=== PATIENT | male | born 1960 | race Caucasian/White ===

== ENCOUNTER 2019-02-20 17:04 | Inpatient (IN) ==
[2019-02-20] MEDS ORDERED: PROMETHAZINE HCL 12.5 MG in SODIUM CHLORIDE 0.9% 50 ML IV STA (18:01)
[2019-02-20] MEDS ORDERED: DiphenhydrAMINE HCL 50 MG/ML VIAL IV STA (18:01)
[2019-02-20] MEDS ORDERED: SODIUM CHLORIDE 0.9% 1000ML 1,000 ML IV ONE (18:04)
[2019-02-20] MEDS ORDERED: FAMOTIDINE 20MG/5ML IV PUSH IV STA (18:08)
[2019-02-20] MEDS ORDERED: PROMETHAZINE 12.5 MG/50.5 ML NSS IV ONE (18:12)
[2019-02-20 18:20] LABS: Hematocrit (blood only) 40.7 % (42-52); Immature Granulocytes # (auto) 0.04 K/uL (0.00-0.02); Immature Granulocytes % (auto) 0.2 %; Lymphocytes # (auto) 0.84 K/uL (1.2-3.4); Lymphocytes % (auto) 5.1 %; Mean Corpuscular Hgb Conc 36.9 g/dL (32-36); Mean Corpuscular Volume 81.6 fL (80-100); Mean Platelet Volume 10.2 fL (7.4-10.4); Monocytes # (auto) 0.89 K/uL (0.11-0.59); Monocytes % (auto) 5.4 %; Neutrophils # (auto) 14.72 K/uL (1.4-6.5); Neutrophils % (auto) 89.3 %; Platelet Count 197 K/uL (130-400); RDW Coefficient of Variation 12.9 % (11.5-14.5); RDW Standard Deviation 38.7 fL (36.4-46.3); Red Blood Count 4.99 M/uL (4.7-6.1); White Blood Count 16.49 K/uL (4.8-10.8)
--- NOTE | 2019-02-20 18:26 | XRay Report ---
XR chest 1V portable CLINICAL HISTORY: Epigastric pain. COMPARISON STUDY: Chest radiograph February 24, 2013. FINDINGS: Cardiomegaly is noted. There is mild left basilar opacity. Right lung is clear. No evidence for pulmonary edema. No pneumothorax is noted. There is slight blunting of the left costophrenic ang le. IMPRESSION: 1. Left basilar opacity which favors atelectasis. 2. Cardiomegaly without evidence for pulmonary edema. Electronically signed by: Sebastián Valencia M.D. 02/20/2019 6:24 PM
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
[2019-02-20 18:39] LABS: BUN Creatinine Ratio 17.1 (10-20); Blood Urea Nitrogen 14 mg/dl (7-18); Calcium 8.7 mg/dl (8.5-10.1); Carbon Dioxide 26 mmol/L (21-32); Chloride 93 mmol/L (98-107); Creatinine Clr Calc Pharmacy 124.4 ml/min; Est GFR (African American) 114.3; Est GFR (Non-African American) 98.7; Glucose 148 mg/dl (70-99); Magnesium 2.1 mg/dl (1.8-2.4); Potassium 3.7 mmol/L (3.5-5.1); Sodium 128 mmol/L (136-145)
[2019-02-20 19:01] LABS: Alanine Aminotransferase 28 U/L (12-78); Albumin Globulin Ratio 1.1 (0.9-2); Alkaline Phosphatase 70 U/L (45-117); Aspartate Aminotransferase 28 U/L (15-37); Bilirubin,Total 3.5 mg/dl (0.2-1); Globulin 3.8 gm/dl (2.5-4.0); Total Protein 7.8 gm/dl (6.4-8.2); Troponin I < 0.015 ng/ml (0-0.045)
[2019-02-20] MEDS ORDERED: IOVERSOL 100ml IV PRN (19:17)
--- NOTE | 2019-02-20 19:37 | CT Scan Report ---
CT OF THE ABDOMEN AND PELVIS WITH CONTRAST CLINICAL HISTORY: Epigastric pain. COMPARISON STUDY: None. TECHNIQUE: Following IV administration of 92 mL of Optiray-320, axial images of the abdomen and pelvi s were obtained from the lung bases to the proximal femurs. Images were reviewed in the axial, sagitt al, and coronal planes. IV contrast was administered without complication. Automated exposure contro l was utilized for the study. A dose lowering technique was utilized adhering to the principles of A CL. CT DOSE: 1411.93 mGy.cm FINDINGS: Bibasilar opacities favor atelectasis. No pneumatosis, free air or portal venous gas is pre sent. The liver, spleen, adrenal glands and pancreas are unremarkable. There is no biliary or pancrea tic ductal dilatation. A 5 mm calculus within the lower pole the left kidney is noted. There is a pun ctate right renal calculi. There are no ureteral calculi. There is no hydronephrosis. There is mild s ymmetric bilateral perinephric infiltration. There is no evidence for a bowel obstruction. The append ix is normal. Exam is mildly compromised by motion artifact. There are no suspicious osseous lesions. Caliber and wall thickness of small and large bowel are normal. IMPRESSION: 1. Bilateral nephrolithiasis. No ureteral calculi. Symmetric bilateral perinephric infiltration, a no nspecific finding. Differential considerations include an infectious process or recently passed calcu yamel. Findings could be correlated with urinalysis. 2. No bowel obstruction. Normal appendix. 3. Bibasilar opacities within the lungs suggestive of atelectasis. Electronically signed by: Sebastián Valencia M.D. 02/20/2019 7:36 PM
[2019-02-20] MEDS ORDERED: HydrALAZINE HCL 20 MG/ML VIAL IV STA (19:49)
[2019-02-20 20:07] LABS: Appearance Urine Clear (Clear); Bilirubin Urine Negative (Negative); Blood Urine Negative (Negative); Color Urine Yellow; Glucose Urine UA Negative (Negative); Ketones Urine Negative (Negative); Leukocyte Esterase Urine Negative (Negative); Nitrite Urine Negative (Negative); Protein Urine Negative (Negative); Specific Gravity Urine 1.008 (1.000-1.030); Urobilinogen Urine Negative (Negative); pH Urine 6.5 (4.5-7.5)
--- NOTE | 2019-02-20 20:54 | History & Physical Report ---
Date of Service February 20, 2019 Assessment & Plan (1) Hyponatremia: Secondary to vomiting and decreased intake. Place on NSS plus KCl 20 mEq 100 mils per hour. Repeat laboratories in a.m. Present on Admission?: Yes (2) Hypertension: For overnight, use Lopressor 5 mg IV every 4 hours as needed. May resume lisinopril/HCTZ in a.m. Present on Admission?: Yes (3) Hiccups: Place on Thorazine 25 mg p.o. every 6 hours as needed Present on Admission?: Yes (4) Vomiting: CT abdomen and pelvis negative for issues such as ileus or enteritis or obstruction. Likely secondary to adverse drug reaction with taking Toradol and Percocet on empty stomach post surgery. Zofran 4 mg IV every 6 hours as needed. Compazine 10 mg IV every 6 hours as needed. Famotidine 20 mg IV every 12 hours. Present on Admission?: Yes (5) Adverse drug reaction: As above, likely irritation with Toradol and Percocet taken postoperatively on empty stomach, led to abdominal pain with nausea vomiting. Do not think this is an adverse effect of the drug itself, but how it was taken Present on Admission?: Yes (6) Adhesive capsulitis of left shoulder: Reports doing well post surgery. Nerve block is still in effect. Present on Admission?: Yes History of Present Illness Chief Complaint: The patient presents to the emergency department with intractable nausea and vomiting, and has had persistent hiccups over the past 24 hours Primary Care Provider: KAREN Hatfield The patient is a 58-year-old male who underwent orthopedic surgery yesterday for adhesive capsulitis. He went home afterwards, and reports he was doing okay until he took the oral Toradol and Percocet pills that have been prescribed for pain and inflammation to use post surgery. Shortly after taking the Toradol and Percocet, he developed nausea, vomiting and epigastric distress, that has persisted since that time. He reports no previous issues with anesthesia in the distant past, and has not had issues with taking anti-inflammatories or pain meds in the past. He also did develop pickups shortly after the procedure, and have persisted since that time. Allergies Allergy/AdvReac Type Severity Reaction Status Date / Time clindamycin Allergy Mild DIZZY Verified 02/19/19 09:26 Penicillins Allergy Unknown . Verified 02/19/19 09:26 amlodipine Allergy Verified 02/19/19 09:26 amoxicillin [From Augmentin] Allergy Verified 02/19/19 09:26 clavulanic acid Allergy Verified 02/19/19 09:26 [From Augmentin] Home Medications Home Medications Medication Instructions Recorded Confirmed Type ascorbic acid (vitamin C) 1,000 mg 1 gm PO DAILY #30 tab 12/29/18 02/20/19 Rx tablet beta carotene 15 mg tablet 15 mg PO DAILY tab 12/29/18 02/20/19 History cholecalciferol (vitamin D3) 2,000 2,000 units PO DAILY #30 cap 12/29/18 02/20/19 Rx unit capsule multivitamin tablet 1 tab PO DAILY #30 tab 12/29/18 02/20/19 Rx omega-3 fatty acids 500 mg capsule 500 mg PO DAILY #30 cap 12/29/18 02/20/19 Rx vitamin B complex tablet 1 tab PO DAILY #30 tab 12/29/18 02/20/19 Rx CLA 1,000 mg PO DAILY 02/11/19 02/20/19 History ferrous sulfate [iron] 325 mg PO DAILY 02/11/19 02/20/19 History oxycodone-acetaminophen [Percocet] 1 tab PO Q6H PRN #30 tab 02/19/19 02/20/19 Rx Bpc 157 Amino Acids 1 dose INJ UD 02/20/19 02/20/19 History Lecithin E 3 tabs PO DAILY 02/20/19 02/20/19 History ketorolac 10 mg PO Q8H PRN 02/20/19 02/20/19 History lisinopril-hydrochlorothiazide 0.5 tab PO MOWEFR 02/20/19 02/20/19 History loratadine [Claritin] 10 mg PO DAILY PRN 02/20/19 02/20/19 History turmeric 0 mg PO DAILY 02/20/19 02/20/19 History Past Med/Surg History Medical History Fracture of left carpal bone Depression with anxiety (Chronic) Lower back pain (Chronic) Obstructive sleep apnea (Chronic) resolved w/ wt loss Hypertension (Chronic) Type 2 diabetes mellitus (Chronic) diet controlled (reports resolved since wt loss) Ventral hernia (Chronic) Gilbert syndrome Herniated cervical disc Surgical History History of colonoscopy w/ polypectomy History of esophagogastroduodenoscopy (EGD) Status post trigger finger release Family History Father H/O aortic valve replacement @ age 85 Hypertension Social History Preferred Language: Portuguese Communication Ability: Effective Visual Impairment: No Limitations Hearing Ability: Normal Aircraft Time Clerk Required: No Beliefs That Will Affect Care: None marital status: Single Current Living Situation: Parent Current Living Situation Comment: parents live with him current occupational status: employed current occupation: self-employed musician Feels Safe at Home: Yes Safety Concerns: Feels Safe At This Time Smoking Status: Never smoker Hx Alcohol Use: Yes Alcohol type: beer Alcohol Intake Frequency: Holidays/Special Occasions Hx Substance Use: No Dental Care, Regularly: Yes Physical Activity Frequency: 3-4 Times per Week Review of Systems Review of Systems: The patient denies chest pain, palpitations, shortness of breath, dyspnea on exertion, cough, lower extremity swelling, sore throat, fevers, chills, sweats, diarrhea , constipation, blood in urine or stool, dysuria, urinary frequency or urgency, lightheadedness, dizziness, headache, memory loss, loss of consciousness, rash, abnormal bruising or bleeding, imbalance, focal or generalized weakness, numbness or tingling in arms or legs, generalized arthralgias or myalgias, back or neck pain, or night sweats. The review of systems is otherwise negative other than for that already noted above, and at least 10 systems have been reviewed. Physical Exam Physical Exam: The patient is awake, alert and oriented 3, well developed and well nourished, normocephalic and atraumatic, lying in bed and in no acute distress. HEENT--PERRL, EOMI, mucous membranes and oropharynx dry. Neck--supple. No JVD. No bruits. Thyroid normal, trachea midline, no adenopathy. Heart--normal S1 and S2. No murmurs, rubs or gallops. Lungs--clear bilaterally, no respiratory distress, no accessory muscle use. Abdomen--normal bowel sounds and soft. Nontender. Nondistended, no hernias or masses, no organomegaly. Extremities--no cyanosis or clubbing. No edema. There are good distal pulses b/l. Dermatologic--normal skin turgor, normal color, no abnormal lymph nodes, no rash. Neurologic--cranial nerves II through XII grossly intact. Rheumatologic--limited exam due to left arm shoulder in a sling Psychiatric--normal affect. Results & Data Vital Signs (Past 12 Hours) Vital Signs Temp Pulse Resp BP Pulse Ox 02/20/19 17:34 99.0 F 82 19 213/100 H 96 Laboratory Results Laboratory Results WBC 16.49 K/uL (4.8-10.8) H 02/20/19 17:57 RBC 4.99 M/uL (4.7-6.1) 02/20/19 17:57 Hgb 15.0 g/dL (14.0-18.0) 02/20/19 17:57 Hct 40.7 % (42-52) L 02/20/19 17:57 MCV 81.6 fL (80-100) 02/20/19 17:57 MCH 30.1 pg (25-34) 02/20/19 17:57 MCHC 36.9 g/dL (32-36) H 02/20/19 17:57 RDW Std Deviation 38.7 fL (36.4-46.3) 02/20/19 17:57 RDW Coeff of Mark 12.9 % (11.5-14.5) 02/20/19 17:57 Plt Count 197 K/uL (130-400) 02/20/19 17:57 MPV 10.2 fL (7.4-10.4) 02/20/19 17:57 Immature Gran % (Auto) 0.2 % 02/20/19 17:57 Neut % (Auto) 89.3 % 02/20/19 17:57 Lymph % (Auto) 5.1 % 02/20/19 17:57 [place] % (Auto) 5.4 % 02/20/19 17:57 Eos % (Auto) 0.0 % 02/20/19 17:57 Baso % (Auto) 0.0 % 02/20/19 17:57 Immature Gran # (Auto) 0.04 K/uL (0.00-0.02) H 02/20/19 17:57 Neut # (Auto) 14.72 K/uL (1.4-6.5) H 02/20/19 17:57 Lymph # (Auto) 0.84 K/uL (1.2-3.4) L 02/20/19 17:57 [place] # (Auto) 0.89 K/uL (0.11-0.59) H 02/20/19 17:57 Eos # (Auto) 0.00 K/uL (0-0.5) 02/20/19 17:57 Baso # (Auto) 0.00 K/uL (0-0.2) 02/20/19 17:57 Sodium 128 mmol/L (136-145) L 02/20/19 17:57 Potassium 3.7 mmol/L (3.5-5.1) 02/20/19 17:57 Chloride 93 mmol/L (98-107) L 02/20/19 17:57 Carbon Dioxide 26 mmol/L (21-32) 02/20/19 17:57 Anion Gap 9.0 (3-11) 02/20/19 17:57 BUN 14 mg/dl (7-18) 02/20/19 17:57 Creatinine 0.81 mg/dl (0.6-1.4) 02/20/19 17:57 Est Cr Clr Drug Dosing 124.4 ml/min 02/20/19 17:57 Est GFR ( Amer) 114.3 02/20/19 17:57 Est GFR (Non-Af Amer) 98.7 02/20/19 17:57 BUN/Creatinine Ratio 17.1 (10-20) 02/20/19 17:57 Glucose 148 mg/dl (70-99) H 02/20/19 17:57 Calcium 8.7 mg/dl (8.5-10.1) 02/20/19 17:57 Magnesium 2.1 mg/dl (1.8-2.4) 02/20/19 17:57 Total Bilirubin 3.5 mg/dl (0.2-1) H 02/20/19 17:57 AST 28 U/L (15-37) 02/20/19 17:57 ALT 28 U/L (12-78) 02/20/19 17:57 Alkaline Phosphatase 70 U/L (45-117) 02/20/19 17:57 Troponin I < 0.015 ng/ml (0-0.045) 02/20/19 17:57 Total Protein 7.8 gm/dl (6.4-8.2) 02/20/19 17:57 Albumin 4.0 gm/dl (3.4-5.0) 02/20/19 17:57 Globulin 3.8 gm/dl (2.5-4.0) 02/20/19 17:57 Albumin/Globulin Ratio 1.1 (0.9-2) 02/20/19 17:57 Lipase 119 U/L (73-393) 02/20/19 17:57 Urine Color Yellow 02/20/19 19:20 Urine Appearance Clear (Clear) 02/20/19 19:20 Urine pH 6.5 (4.5-7.5) 02/20/19 19:20 Ur Specific [place] 1.008 (1.000-1.030) 02/20/19 19:20 Urine Protein Negative (Negative) 02/20/19 19:20 Urine Glucose (UA) Negative (Negative) 02/20/19 19:20 Urine Ketones Negative (Negative) 02/20/19 19:20 Urine Blood Negative (Negative) 02/20/19 19:20 Urine Nitrite Negative (Negative) 02/20/19 19:20 Urine Bilirubin Negative (Negative) 02/20/19 19:20 Urine Urobilinogen Negative (Negative) 02/20/19 19:20 Ur Leukocyte Esterase Negative (Negative) 02/20/19 19:20 Diagnostic Findings [place], [place] [phone] CT Scan Report Patient: CHANTEL HAYS WAdmit Date: 02/20/19 MR#: [id number]: [address] [facility] EXT Acct ID:[id number]: Date: [address] [place] [address] Zip: [place] [id number] Age: 58Location: ED Sex: M Room/Bed: Att Phy: Diagnosis: NAUSEA, VOMITING, HICCUPS, PAIN FROM THEM IN ABD Leeanne Phy: Alfa Garcia, JUDSONNPService Date: 02/20/19 Fam Phy: Rick Graff, DOInterpreting Phy: Sebatsián Valencia MD Admit Phy: Ordering Phy: Augustin Culver M.D. cc: ~ CT OF THE ABDOMEN AND PELVIS WITH CONTRAST CLINICAL HISTORY: Epigastric pain. COMPARISON STUDY: None. TECHNIQUE: Following IV administration of 92 mL of Optiray-320, axial images of the abdomen and pelvis were obtained from the lung bases to the proximal femurs. Images were reviewed in the axial, sagittal, and coronal planes. IV contrast was administered without complication. Automated exposure control was utilized for the study. A dose lowering technique was utilized adhering to the principles of ALARA. CT DOSE: 1411.93 mGy.cm FINDINGS: Bibasilar opacities favor atelectasis. No pneumatosis, free air or portal venous gas is present. The liver, spleen, adrenal glands and pancreas are unremarkable. There is no biliary or pancreatic ductal dilatation. A 5 mm calculus within the lower pole the left kidney is noted. There is a punctate right renal calculi. There are no ureteral calculi. There is no hydronephrosis. There is mild symmetric bilateral perinephric infiltration. There is no evidence for a bowel obstruction. The appendix is normal. Exam is mildly compromised by motion artifact. There are no suspicious osseous lesions. Caliber and wall thickness of small and large bowel are normal. IMPRESSION: 1. Bilateral nephrolithiasis. No ureteral calculi. Symmetric bilateral pe rinephric infiltration, a nonspecific finding. Differential considerations include an infectious process or recently passed calculus. Findings could be correlated with urinalysis. 2. No bowel obstruction. Normal appendix. 3. Bibasilar opacities within the lungs suggestive of atelectasis. Electronically signed by: Sebastián Valencia M.D. 02/20/2019 7:36 PM Dictated: 02/20/191926 Transcribed: 02/20/191926 [place], [place] [phone] XRay Report Patient: CHANTEL HAYS WAdmit Date: 02/20/19 MR#: [id number]: [address] [facility] EX[facility] Acct ID:[id number]: Date: [address] [place] [address] Zip: [place] [address] Age: 58Location: ED Sex: M Room/Bed: Att Phy: Diagnosis: NAUSEA, VOMITING, HICCUPS, PAIN FROM THEM IN ABD Leeanne Phy: Alfa Garcia, JUDSONNPService Date: 02/20/19 Fam Phy: Rick Graff, BRIANnterpreting Phy: Sebastián Valencia MD Admit Phy: Ordering Phy: Augustin Culver M.D. cc: ~ XR chest 1V portable CLINICAL HISTORY: Epigastric pain. COMPARISON STUDY: Chest radiograph February 24, 2013. FINDINGS: Cardiomegaly is noted. There is mild left basilar opacity. Right lung is clear. No evidence for pulmonary edema. No pneumothorax is noted. There is slight blunting of the left costophrenic angle. IMPRESSION: 1. Left basilar opacity which favors atelectasis. 2. Cardiomegaly without evidence for pulmonary edema. Electronically signed by: Sebastián Valencia M.D. 02/20/2019 6:24 PM Dictated: 02/20/191822 Transcribed: 02/20/191822 Code Status & VTE Plan Code Status Full code VTE Prophylaxis Plan VTE Prophylaxis will be ordered: Yes PG Care Time/CCT Total # of Minutes Spent Total Time Spent with Patient: Total time spent is greater than 50% in coordination of care (as documented) at patient's floor/unit and/or counseling patient: (1) Hypertension Hypertension type: unspecified Qualified Code(s): I10 - Essential (primary) hypertension (2) Vomiting Nausea presence: unspecified Vomiting Intractability: non-intractable Vomiting type: unspecified Qualified Code(s): R11.10 - Vomiting, unspecified
[2019-02-20] MEDS ORDERED: ONDANSETRON INJ 2 MG/ML 2 ML VIAL IV PRN (22:29)
[2019-02-20] MEDS ORDERED: CHLORPROMAZINE HCL 25 MG TABLET PO PRN (22:29)
[2019-02-20] MEDS ORDERED: PROCHLORPERAZINE 10 MG in SYRINGE 8 ML IV PRN (22:29)
[2019-02-20] MEDS: NSS + 20MEQ KCL 20 MEQ/1,000 ML BAG IV SCH (23:04)
[2019-02-21] MEDS ORDERED: KETOROLAC 30 MG/ML VIAL IV PRN (02:12)
[2019-02-21] MEDS: FAMOTIDINE 20 MG in SYRINGE 3 ML IV SCH ×2 (02:23→13:45)
[2019-02-21 06:04] LABS: Basophils # (auto) 0.01 K/uL (0-0.2); Basophils % (auto) 0.1 %; Hematocrit (blood only) 39.5 % (42-52); Hemoglobin 13.8 g/dL (14.0-18.0); Immature Granulocytes # (auto) 0.02 K/uL (0.00-0.02); Immature Granulocytes % (auto) 0.1 %; Lymphocytes # (auto) 0.83 K/uL (1.2-3.4); Lymphocytes % (auto) 6.2 %; Mean Corpuscular Hgb Conc 34.9 g/dL (32-36); Mean Platelet Volume 11.4 fL (7.4-10.4); Monocytes # (auto) 0.89 K/uL (0.11-0.59); Monocytes % (auto) 6.6 %; Neutrophils # (auto) 11.74 K/uL (1.4-6.5); Platelet Count 166 K/uL (130-400); RDW Coefficient of Variation 13.2 % (11.5-14.5); RDW Standard Deviation 39.4 fL (36.4-46.3); Red Blood Count 4.76 M/uL (4.7-6.1); White Blood Count 13.49 K/uL (4.8-10.8)
[2019-02-21 06:39] LABS: BUN Creatinine Ratio 17.2 (10-20); Calcium 8.7 mg/dl (8.5-10.1); Creatinine Clr Calc Pharmacy 132.1 ml/min; Est GFR (African American) 117.4; Est GFR (Non-African American) 101.3; Potassium 3.9 mmol/L (3.5-5.1)
[2019-02-21] MEDS: NSS + 20MEQ KCL 20 MEQ/1,000 ML BAG IV SCH ×2 (07:49→16:45)
[2019-02-21] MEDS ORDERED: DiphenhydrAMINE HCL 50 MG/ML VIAL IV SCH (12:00)
[2019-02-21] MEDS ORDERED: CHLORPROMAZINE HCL 25 MG TABLET PO SCH (12:00)
[2019-02-21] MEDS: CHLORPROMAZINE HCL 25 MG TABLET PO SCH ×2 (13:44→21:18)
--- NOTE | 2019-02-21 15:46 | Hospitalist Progress Note ---
Date of Service February 21, 2019 Assessment & Plan (1) Vomiting: CT abdomen and pelvis negative for issues such as ileus or enteritis or obstruction. Likely secondary to adverse drug reaction with taking Toradol and Percocet on empty stomach post surgery. Zofran 4 mg IV every 6 hours as needed. Compazine 10 mg IV every 6 hours as needed. Thorazine 25 mg every 6 hours Baclofen 5 mg 3 times daily Benadryl 25 mg QID as needed Famotidine 20 mg IV every 12 hours. (2) Hiccups: As the above (3) Hyponatremia: Secondary to vomiting and decreased intake. Keep n.p.o. Place on NSS plus KCl 20 mEq 100 mils per hour. Repeat laboratories daily and replenish electrolytes (4) Hypertension: For overnight, use Lopressor 5 mg IV every 4 hours as needed. May resume lisinopril/HCTZ in a.m. (5) Adverse drug reaction: As above, likely irritation with Toradol and Percocet taken postoperatively on empty stomach, led to abdominal pain with nausea vomiting. Do not think this is an adverse effect of the drug itself, but how it was taken (6) Adhesive capsulitis of left shoulder: Reports doing well post surgery. Nerve block is still in effect. Subjective She is seen and examined at bed side. He reports that hiccups are slowly improving with Thorazine. He is pain is well controlled for the left shoulder has a capsulitis. Nausea and vomiting improving as well. Patient denies fever chills, chest pain, shortness of breath, abdominal pain, frequency urgency nausea vomiting melena, hematemesis hematuria, syncope. Patient said his bowel movements are regular and reports no diarrhea or constipation. Review of Systems Review of Systems: All systems reviewed & are unremarkable except as noted in HPI & below Physical Exam Constitutional: WD/WN, vitals as above well developed Eyes: PERRL, conjunctivae normal, anicteric sclerae ENMT: external ear and nose normal, oropharynx normal Neck: trachea midline, no thyromegaly Respiratory: normal respiratory effort, lungs clear to auscultation Cardiovascular: RRR, no murmur, no edema Chest (Breasts): normal inspection/palpation of breasts Gastrointestinal (Abdomen): normal bowel sounds, soft, nontender, no hepatosplenomegaly Musculoskeletal: Left shoulder capsulitis status post surgery day 2 Skin: no rashes, warm and dry Neurologic: patellar DTR's 2+ bilat, sensation intact Psychiatric: A+Ox3, euthymic affect Genitourinary: no testicular masses, no penis abnormality Lymphatic: no cervical or axillary lymphadenopathy Results & Data Vital Signs (Past 12 Hours) Vital Signs Temp Pulse Pulse Pulse Resp BP Pulse Ox 02/21/19 15:04 36.4 C L 65 21 156/91 H 96 02/21/19 10:56 36.8 C 62 18 169/92 H 97 02/21/19 08:12 36.9 C 66 18 153/66 H 96 02/21/19 08:00 61 02/21/19 05:17 162/88 H PG Care Time/CCT Total # of Minutes Spent Total Time Spent with Patient: Total time spent is greater than 50% in coordination of care (as documented) at patient's floor/unit and/or counseling patient: (1) Hypertension Hypertension type: unspecified Qualified Code(s): I10 - Essential (primary) hypertension (2) Vomiting Nausea presence: unspecified Vomiting Intractability: non-intractable Vomiting type: unspecified Qualified Code(s): R11.10 - Vomiting, unspecified
[2019-02-21] MEDS ORDERED: SODIUM CHLORIDE 0.9% 1000ML 1,000 ML IV SCH (20:20)
[2019-02-21] MEDS: KETOROLAC 30 MG/ML VIAL IV SCH (21:16)
[2019-02-21] MEDS: BACLOFEN 10 MG TAB PO SCH (21:17)
[2019-02-22] MEDS: METOPROLOL TARTRATE 1 MG/ML VIAL IV PRN ×2 (00:43→07:50)
[2019-02-22] MEDS: KETOROLAC 30 MG/ML VIAL IV SCH ×4 (01:46→20:00)
[2019-02-22] MEDS: FAMOTIDINE 20 MG in SYRINGE 3 ML IV SCH ×2 (01:47→14:24)
[2019-02-22] MEDS ORDERED: HydrALAZINE HCL 20 MG/ML VIAL IV ONE (03:46)
[2019-02-22 05:57] LABS: Basophils # (auto) 0.01 K/uL (0-0.2); Basophils % (auto) 0.1 %; Hematocrit (blood only) 41.1 % (42-52); Immature Granulocytes # (auto) 0.03 K/uL (0.00-0.02); Immature Granulocytes % (auto) 0.3 %; Lymphocytes # (auto) 1.35 K/uL (1.2-3.4); Lymphocytes % (auto) 12.2 %; Mean Corpuscular Hgb Conc 34.1 g/dL (32-36); Mean Corpuscular Volume 84.7 fL (80-100); Mean Platelet Volume 11.2 fL (7.4-10.4); Monocytes # (auto) 0.94 K/uL (0.11-0.59); Monocytes % (auto) 8.5 %; Neutrophils # (auto) 8.76 K/uL (1.4-6.5); Neutrophils % (auto) 78.9 %; Platelet Count 153 K/uL (130-400); RDW Coefficient of Variation 13.6 % (11.5-14.5); RDW Standard Deviation 41.9 fL (36.4-46.3); Red Blood Count 4.85 M/uL (4.7-6.1); White Blood Count 11.09 K/uL (4.8-10.8)
[2019-02-22 06:35] LABS: Albumin Level 3.4 gm/dl (3.4-5.0); BUN Creatinine Ratio 20.1 (10-20); Calcium 8.6 mg/dl (8.5-10.1); Creatinine Clr Calc Pharmacy 149.4 ml/min; Est GFR (African American) 123.6; Est GFR (Non-African American) 106.7
[2019-02-22 06:39] LABS: Globulin 3.5 gm/dl (2.5-4.0); Total Protein 6.9 gm/dl (6.4-8.2)
[2019-02-22] MEDS: BACLOFEN 10 MG TAB PO SCH ×3 (07:51→20:01)
[2019-02-22] MEDS: CHLORPROMAZINE HCL 25 MG TABLET PO SCH ×4 (07:52→20:01)
[2019-02-22] MEDS ORDERED: HydrALAZINE HCL 20 MG/ML VIAL IV PRN (11:39)
--- NOTE | 2019-02-22 13:34 | Hospitalist Progress Note ---
Date of Service February 22, 2019 Assessment & Plan (1) Vomiting: Resolved , patient now tolerates full liquids. CT abdomen and pelvis negative for issues such as ileus or enteritis or obstruction. Likely secondary to adverse drug reaction with taking Toradol and Percocet on empty stomach post surgery. Zofran 4 mg IV every 6 hours as needed. Compazine 10 mg IV every 6 hours as needed. Thorazine 25 mg every 6 hours Baclofen 5 mg 3 times daily Benadryl 25 mg QID as needed Famotidine 20 mg IV every 12 hours. (2) Hiccups: As the above Hiccups resolved with Thorazine scheduled every 6 hours (3) Hyponatremia: Resolved, sodium 140 today. Good p.o. 8 intake stop IV fluids. Repeat laboratories daily and replenish electrolytes (4) Hypertension: Continue to have issues with elevated blood pressure. No focal signs or end organ damage. Restarted home dose of lisinopril hydrochlorothiazide. Hydralazine 10 mg 4 hours as needed for elevated blood pressure 160/90 (5) Adverse drug reaction: As above, likely irritation with Toradol and Percocet taken postoperatively on empty stomach, led to abdominal pain with nausea vomiting. Do not think this is an adverse effect of the drug itself, but how it was taken (6) Adhesive capsulitis of left shoulder: Reports doing well post surgery. Nerve block is still in effect. Physical therapy Subjective She is seen and examined at bed side. Patient said hiccups are gone now but he has elevated blood pressure and he did not sleep well last night.Patient denies any focal signs of high blood pressure. He is pain is well controlled for the left shoulder has a capsulitis. Nausea and vomiting improving as well. Patient denies fever chills, chest pain, shortness of breath, abdominal pain, frequency urgency nausea vomiting melena, hematemesis hematuria, syncope. Patient said his bowel movements are regular and reports no diarrhea or constipation. Review of Systems Review of Systems: All systems reviewed & are unremarkable except as noted in HPI & below Physical Exam Constitutional: WD/WN, vitals as above well developed Eyes: PERRL, conjunctivae normal, anicteric sclerae ENMT: external ear and nose normal, oropharynx normal Neck: trachea midline, no thyromegaly Respiratory: normal respiratory effort, lungs clear to auscultation Cardiovascular: RRR, no murmur, no edema Chest (Breasts): normal inspection/palpation of breasts Gastrointestinal (Abdomen): normal bowel sounds, soft, nontender, no hepatosplenomegaly Skin: no rashes, warm and dry Neurologic: patellar DTR's 2+ bilat, sensation intact Psychiatric: A+Ox3, euthymic affect Genitourinary: no testicular masses, no penis abnormality Lymphatic: no cervical or axillary lymphadenopathy Results & Data Vital Signs (Past 12 Hours) Vital Signs Temp Pulse Pulse Resp BP BP Pulse Ox 02/22/19 11:33 36.8 C 67 20 190/103 H 98 02/22/19 08:00 60 02/22/19 07:50 66 178/97 H 02/22/19 06:58 36.7 C 58 L 18 178/97 H 98 02/22/19 03:24 36.6 C 58 L 19 183/98 H 98 PG Care Time/CCT Total # of Minutes Spent Total Time Spent with Patient: Total time spent is greater than 50% in coordi nation of care (as documented) at patient's floor/unit and/or counseling patient: (1) Vomiting Nausea presence: unspecified Vomiting Intractability: non-intractable Vomiting type: unspecified Qualified Code(s): R11.10 - Vomiting, unspecified (2) Hypertension Hypertension type: unspecified Qualified Code(s): I10 - Essential (primary) hypertension
[2019-02-22] MEDS ORDERED: LISINOPRIL/HCTZ 20/12.5MG 1 TAB TAB PO SCH (13:45)
[2019-02-22] MEDS: HydrALAZINE 10 MG TAB PO PRN ×2 (14:18→20:54)
[2019-02-22] MEDS: ZOLPIDEM TARTRATE 5 MG TAB PO PRN (19:59)
[2019-02-23] MEDS ORDERED: LISINOPRIL/HCTZ 20/12.5MG 1 TAB TAB PO ONE ×2 (00:15→08:45)
[2019-02-23] MEDS: KETOROLAC 30 MG/ML VIAL IV SCH ×3 (02:36→13:35)
[2019-02-23] MEDS: FAMOTIDINE 20 MG in SYRINGE 3 ML IV SCH ×2 (02:37→13:35)
[2019-02-23] MEDS: HydrALAZINE 10 MG TAB PO PRN ×2 (05:55→11:34)
[2019-02-23 06:38] LABS: Basophils # (auto) 0.01 K/uL (0-0.2); Basophils % (auto) 0.1 %; Eosinophils # (auto) 0.01 K/uL (0-0.5); Eosinophils % (auto) 0.1 %; Hematocrit (blood only) 42.4 % (42-52); Hemoglobin 14.6 g/dL (14.0-18.0); Immature Granulocytes # (auto) 0.02 K/uL (0.00-0.02); Immature Granulocytes % (auto) 0.2 %; Lymphocytes # (auto) 1.09 K/uL (1.2-3.4); Lymphocytes % (auto) 13.2 %; Mean Corpuscular Hgb Conc 34.4 g/dL (32-36); Mean Corpuscular Volume 84.6 fL (80-100); Mean Platelet Volume 11.4 fL (7.4-10.4); Monocytes # (auto) 0.54 K/uL (0.11-0.59); Monocytes % (auto) 6.6 %; Neutrophils # (auto) 6.57 K/uL (1.4-6.5); Neutrophils % (auto) 79.8 %; Platelet Count 156 K/uL (130-400); RDW Coefficient of Variation 13.5 % (11.5-14.5); RDW Standard Deviation 41.6 fL (36.4-46.3); Red Blood Count 5.01 M/uL (4.7-6.1); White Blood Count 8.24 K/uL (4.8-10.8)
[2019-02-23 07:13] LABS: Albumin Level 3.5 gm/dl (3.4-5.0); BUN Creatinine Ratio 16.4 (10-20); Calcium 9.2 mg/dl (8.5-10.1); Creatinine Clr Calc Pharmacy 136.7 ml/min; Est GFR (Non-African American) 103.6; Potassium 3.8 mmol/L (3.5-5.1)
[2019-02-23 07:16] LABS: Bilirubin,Total 1.9 mg/dl (0.2-1); Globulin 3.6 gm/dl (2.5-4.0); Total Protein 7.1 gm/dl (6.4-8.2)
[2019-02-23] MEDS: BACLOFEN 10 MG TAB PO SCH ×3 (08:07→20:56)
[2019-02-23] MEDS: CHLORPROMAZINE HCL 25 MG TABLET PO SCH ×3 (08:07→20:57)
[2019-02-23] MEDS ORDERED: LISINOPRIL/HCTZ 20/12.5MG 1 TAB TAB PO SCH (09:00)
--- NOTE | 2019-02-23 10:46 | Hospitalist Progress Note ---
Date of Service February 23, 2019 Assessment & Plan (1) Vomiting: Resolved , patient now tolerates GI soft. CT abdomen and pelvis negative for issues such as ileus or enteritis or obstruction. Likely secondary to adverse drug reaction with taking Toradol and Percocet on empty stomach post surgery. Zofran 4 mg IV every 6 hours as needed. Compazine 10 mg IV every 6 hours as needed. Thorazine 25 mg every 6 hours taper down. Baclofen 5 mg 3 times daily Benadryl 25 mg QID as needed Famotidine 20 mg IV every 12 hours. (2) Hiccups: As the above Hiccups resolved (3) Hyponatremia: Resolved, sodium 140 today. Good p.o. 8 intake stop IV fluids. Repeat laboratories daily and replenish electrolytes (4) Hypertension: Continue to have issues with elevated blood pressure. No focal signs or end organ damage. Increased lisinopril hydrochlorothiazide to 40/25 Hydralazine 10 mg 4 hours as needed for elevated blood pressure 160/90 (5) Adverse drug reaction: As above, likely irritation with Toradol and Percocet taken postoperatively on empty stomach, led to abdominal pain with nausea vomiting. Do not think this is an adverse effect of the drug itself, but how it was taken (6) Adhesive capsulitis of left shoulder: Reports doing well post surgery. Nerve block is still in effect. Physical therapy Follow-up with Dr. Roger Abrams in March 03, 2019 Subjective She is seen and examined at bed side. Patient said he hiccups are resolved. He tolerates GI soft nausea and vomiting is resolved as well. Patient continues to have elevated blood pressure and average 200/100 without any focal sign. Patient said he has blood pressure at home is usually normal and he has blood pressure cuff and he measures it several times a day. At home he takes lisinopril hydrochlorothiazide 12/12.5. In the hospital it is difficult to controlled patient blood pressure with lisinopril hydrochlorothiazide for the 25 and additional hydralazine p.o. 4 times daily as needed for elevated blood pressure 160/90. Patient denies any shoulder pain. He said his physical therapy went well today.Patient denies fever chills, chest pain, shortness of breath, abdominal pain, frequency urgency nausea vomiting melena, hematemesis hematuria, syncope. Patient said his bowel movements are regular and reports no diarrhea or constipation. Review of Systems Review of Systems: All systems reviewed & are unremarkable except as noted in HPI & below Physical Exam Constitutional: WD/WN, vitals as above well developed Eyes: PERRL, conjunctivae normal, anicteric sclerae ENMT: external ear and nose normal, oropharynx normal Neck: trachea midline, no thyromegaly Respiratory: normal respiratory effort, lungs clear to auscultation Cardiovascular: RRR, no murmur, no edema Chest (Breasts): normal inspection/palpation of breasts Gastrointestinal (Abdomen): normal bowel sounds, soft, nontender, no hepatosplenomegaly Skin: no rashes, warm and dry Neurologic: patellar DTR's 2+ bilat, sensation intact Psychiatric: A+Ox3, euthymic affect Genitourinary: no testicular masses, no penis abnormality Lymphatic: no cervical or axillary lymphadenopathy Results & Data Vital Signs (Past 12 Hours) Vital Signs Temp Pulse Pulse Resp BP Pulse Ox 02/23/19 08:00 68 02/23/19 07:02 36.5 C 70 18 180/108 H 96 02/23/19 05:20 181/98 H 02/23/19 03:49 36.4 C L 70 16 178/109 H 98 02/22/19 22:53 36.4 C L 74 16 177/99 H 97 PG Care Time/CCT Total # of Minutes Spent Total Time Spent with Patient: Total time spent is greater than 50% in coordination of care (as documented) at patient's floor/unit and/or counseling patient: (1) Hypertension Hypertension type: unspecified Qualified Code(s): I10 - Essential (primary) hypertension (2) Vomiting Nausea presence: unspecified Vomiting Intractability: non-intractable Vomiting type: unspecified Qualified Code(s): R11.10 - Vomiting, unspecified
[2019-02-23] MEDS ORDERED: HydrALAZINE 10 MG TAB PO ONE (13:48)
[2019-02-23] MEDS ORDERED: HydrALAZINE HCL 20 MG/ML VIAL IV ONE (15:24)
[2019-02-23] MEDS: CARVEDILOL 6.25 MG TAB PO SCH (20:55)
[2019-02-23] MEDS: HydrALAZINE HCL 20 MG/ML VIAL IV PRN (21:01)
[2019-02-24] MEDS: FAMOTIDINE 20 MG in SYRINGE 3 ML IV SCH ×2 (03:50→16:12)
[2019-02-24] MEDS: HydrALAZINE HCL 20 MG/ML VIAL IV PRN ×2 (03:50→23:52)
[2019-02-24 06:06] LABS: Basophils # (auto) 0.01 K/uL (0-0.2); Basophils % (auto) 0.1 %; Eosinophils # (auto) 0.04 K/uL (0-0.5); Eosinophils % (auto) 0.5 %; Hematocrit (blood only) 44.1 % (42-52); Hemoglobin 15.6 g/dL (14.0-18.0); Immature Granulocytes # (auto) 0.02 K/uL (0.00-0.02); Immature Granulocytes % (auto) 0.2 %; Lymphocytes # (auto) 1.64 K/uL (1.2-3.4); Lymphocytes % (auto) 19.9 %; Mean Corpuscular Hgb Conc 35.4 g/dL (32-36); Mean Corpuscular Volume 84.5 fL (80-100); Mean Platelet Volume 11.4 fL (7.4-10.4); Monocytes # (auto) 0.65 K/uL (0.11-0.59); Monocytes % (auto) 7.9 %; Neutrophils # (auto) 5.89 K/uL (1.4-6.5); Neutrophils % (auto) 71.4 %; Platelet Count 209 K/uL (130-400); RDW Coefficient of Variation 13.3 % (11.5-14.5); RDW Standard Deviation 40.6 fL (36.4-46.3); Red Blood Count 5.22 M/uL (4.7-6.1); White Blood Count 8.25 K/uL (4.8-10.8)
[2019-02-24 06:45] LABS: Albumin Level 3.7 gm/dl (3.4-5.0); BUN Creatinine Ratio 18.4 (10-20); Creatinine Clr Calc Pharmacy 129.4 ml/min; Est GFR (African American) 117.4; Est GFR (Non-African American) 101.3; Potassium 3.5 mmol/L (3.5-5.1)
[2019-02-24 06:48] LABS: Bilirubin,Total 2.2 mg/dl (0.2-1); Globulin 3.7 gm/dl (2.5-4.0); Total Protein 7.4 gm/dl (6.4-8.2)
--- NOTE | 2019-02-24 08:08 | Progress Note ---
DATE: 02/24/2019 ORTHOPEDIC PROGRESS NOTE CHIEF COMPLAINT: He presents to the hospital with vomiting and hiccups, status post arthroscopic left shoulder procedure. HISTORY OF PRESENT ILLNESS: Asa is a 58-year-old male who underwent a capsular release with a subacromial decompression of his left shoulder arthroscopy, last . The surgery was done by Dr. Shadi Duran. He did tolerate the procedure pretty well. Postoperatively, he was sent home with prescriptions for Toradol and Percocet. Within 24 hours, he developed severe vomiting and hiccups. Symptoms continued to worsen where he did present to [facility] on Saturday night. His vomiting and hiccups has since resolved. He is tolerating a soft diet. He states he does not have any shoulder pain at this point at all. He currently remains inpatient due to elevated hypertension. PHYSICAL EXAMINATION: The patient is alert and oriented x3. He is sitting upright in his bed and he appears comfortable. We did remove his bandages today and his portal sites look clean, dry and healing. There is no sign of redness, warmth or any drainage. Active range of motion, he has forward elevation approximately 100 degrees of forward elevation, 90 degrees of abduction. Strength testing was not done today. He is otherwise neurovascularly intact in his left upper extremity. ASSESSMENT AND DIAGNOSES: 1. Four days status post capsular release with subacromial decompression of the left shoulder. 2. Nausea, vomiting and hiccups postoperatively. PLAN: At this time, as far as the shoulder is concerned, his pain is very well controlled. He has no pain in his shoulder whatsoever. We did recommend that he can take off his bandage. He can shower and cover the portal sites with Band-Aids going forward. We did discuss with the patient that he can hold off on physical therapy until he is out of the hospital and feels more comfortable. From orthopedic standpoint, as far as the shoulder is concerned, he would be ready for discharge per hospitalist evaluation of his hypertension.
[2019-02-24] MEDS: CHLORPROMAZINE HCL 25 MG TABLET PO SCH ×3 (08:45→20:01)
[2019-02-24] MEDS: BACLOFEN 10 MG TAB PO SCH ×3 (08:46→20:01)
[2019-02-24] MEDS: LISINOPRIL/HCTZ 20/12.5MG 1 TAB TAB PO SCH (08:49)
[2019-02-24] MEDS: CARVEDILOL 6.25 MG TAB PO SCH (08:49)
[2019-02-24] MEDS ORDERED: CARVEDILOL 6.25 MG TAB PO STA (17:11)
--- NOTE | 2019-02-24 17:29 | Hospitalist Progress Note ---
Date of Service February 24, 2019 Assessment & Plan (1) Vomiting: Resolved , patient now tolerates GI soft. CT abdomen and pelvis negative for issues such as ileus or enteritis or obstruction. Likely secondary to adverse drug reaction with taking Toradol and Percocet on empty stomach post surgery. Zofran 4 mg IV every 6 hours as needed. Compazine 10 mg IV every 6 hours as needed. Thorazine 25 mg tid for 3 days then BID for 3 days once day for 3 days then stop Baclofen 5 mg 3 times daily Famotidine 20 mg IV every 12 hours. (2) Hiccups: As the above Hiccups resolved (3) Hyponatremia: Resolved, sodium 140 today. Good p.o. 8 intake stop IV fluids. Repeat laboratories daily and replenish electrolytes (4) Hypertension: Continue to have issues with elevated blood pressure. No focal signs or end organ damage. Increased lisinopril hydrochlorothiazide to 40/25 Hydralazine 10 mg 4 hours as needed for elevated blood pressure 160/90 Coreg increased from 6.25 to 12.5 BID (5) Adverse drug reaction: As above, likely irritation with Toradol and Percocet taken postoperatively on empty stomach, led to abdominal pain with nausea vomiting. Do not think this is an adverse effect of the drug itself, but how it was taken (6) Adhesive capsulitis of left shoulder: Reports doing well post surgery. Nerve block is still in effect. Physical therapy Follow-up with Dr. Roger Abrams in March 03, 2019 Subjective Pt is seen and examined at bed side. Patient said he hiccups are resolved. He tolerates GI soft nausea and vomiting is resolved as well. Patient continues to have elevated blood pressure and average 200/100 without any focal sign and despite of doubling does of his home meds and starting him on coreg 6.25. Patient denies any shoulder pain. He said his physical therapy went well today.Patient denies fever chills, chest pain, shortness of breath, abdominal pain, frequency urgency nausea vomiting melena, hematemesis hematuria, syncope. Patient said his bowel movements are regular and reports no diarrhea or cons tipation. Review of Systems Review of Systems: All systems reviewed & are unremarkable except as noted in HPI & below Physical Exam Constitutional: WD/WN, vitals as above + obese Eyes: PERRL, conjunctivae normal, anicteric sclerae ENMT: external ear and nose normal, oropharynx normal Neck: trachea midline, no thyromegaly Respiratory: normal respiratory effort, lungs clear to auscultation Chest (Breasts): normal inspection/palpation of breasts Gastrointestinal (Abdomen): normal bowel sounds, soft, nontender, no hepatosplenomegaly Musculoskeletal: no cyanosis or clubbing, extremities motor strength 5/5 Skin: no rashes, warm and dry Neurologic: patellar DTR's 2+ bilat, sensation intact Psychiatric: A+Ox3, euthymic affect Genitourinary: no testicular masses, no penis abnormality Lymphatic: no cervical or axillary lymphadenopathy Results & Data Vital Signs (Past 12 Hours) Vital Signs Temp Pulse Pulse Pulse Resp BP BP 02/24/19 15:32 78 169/99 H 02/24/19 12:50 78 175/95 H 02/24/19 11:37 37.4 C 88 20 161/85 H 02/24/19 10:49 36.6 C 68 20 181/96 H 02/24/19 10:04 76 02/24/19 08:01 36.7 C 79 18 167/101 H 02/24/19 07:02 37.1 C 86 18 143/77 H Pulse Ox 02/24/19 15:32 02/24/19 12:50 02/24/19 11:37 97 02/24/19 10:49 97 02/24/19 10:04 02/24/19 08:01 97 02/24/19 07:02 95 PG Care Time/CCT Total # of Minutes Spent Total Time Spent with Patient: Total time spent is greater than 50% in coordination of care (as documented) at patient's floor/unit and/or counseling patient: (1) Vomiting Nausea presence: unspecified Vomiting Intractability: non-intractable Vomiting type: unspecified Qualified Code(s): R11.10 - Vomiting, unspecified (2) Hypertension Hypertension type: unspecified Qualified Code(s): I10 - Essential (primary) hypertension
[2019-02-24] MEDS: ASPIRIN 81 MG CHEW PO SCH (18:23)
[2019-02-24] MEDS: ZOLPIDEM TARTRATE 5 MG TAB PO PRN (20:02)
[2019-02-25] MEDS: FAMOTIDINE 20 MG in SYRINGE 3 ML IV SCH (03:47)
[2019-02-25 05:53] LABS: Basophils # (auto) 0.02 K/uL (0-0.2); Basophils % (auto) 0.2 %; Eosinophils # (auto) 0.06 K/uL (0-0.5); Eosinophils % (auto) 0.7 %; Hematocrit (blood only) 43.1 % (42-52); Hemoglobin 15.4 g/dL (14.0-18.0); Immature Granulocytes # (auto) 0.04 K/uL (0.00-0.02); Immature Granulocytes % (auto) 0.5 %; Lymphocytes # (auto) 1.74 K/uL (1.2-3.4); Mean Corpuscular Hgb Conc 35.7 g/dL (32-36); Mean Corpuscular Volume 82.9 fL (80-100); Mean Platelet Volume 10.4 fL (7.4-10.4); Monocytes # (auto) 0.76 K/uL (0.11-0.59); Monocytes % (auto) 9.2 %; Neutrophils # (auto) 5.68 K/uL (1.4-6.5); Neutrophils % (auto) 68.4 %; Platelet Count 204 K/uL (130-400); RDW Coefficient of Variation 13.3 % (11.5-14.5); RDW Standard Deviation 40.3 fL (36.4-46.3)
[2019-02-25 06:30] LABS: Albumin Level 3.4 gm/dl (3.4-5.0); BUN Creatinine Ratio 23.4 (10-20); Est GFR (Non-African American) 101.8; Potassium 3.6 mmol/L (3.5-5.1)
[2019-02-25 06:33] LABS: Bilirubin,Total 2.3 mg/dl (0.2-1); Globulin 3.5 gm/dl (2.5-4.0); Total Protein 6.9 gm/dl (6.4-8.2)
[2019-02-25] MEDS: ASPIRIN 81 MG CHEW PO SCH (07:50)
[2019-02-25] MEDS: CHLORPROMAZINE HCL 25 MG TABLET PO SCH ×2 (07:50→14:02)
[2019-02-25] MEDS: LISINOPRIL/HCTZ 20/12.5MG 1 TAB TAB PO SCH (07:50)
[2019-02-25] MEDS: BACLOFEN 10 MG TAB PO SCH ×2 (07:51→14:02)
[2019-02-25] MEDS ORDERED: CARVEDILOL 12.5 MG TAB PO SCH (09:00)
--- NOTE | 2019-02-25 09:56 | Cardiology Consultation ---
Date of Consultation February 25, 2019 Assessment & Plan (1) Hypertension: Labile hypertension: Based on random measurements he had quite labile hypertension. Several possibilities exist, one is that his blood pressure does vary a lot from time to time, another possibility is that it is very positional (orthostatic), another is that there is a technical problem with his blood pressure measurement at home although he insists that the measurements are accurate. His blood pressure machine at home has not been compared directly with manual measurements as far as I know. Here he does have some orthostatic findings with a 30 mm drop in systolic blood pressure between supine and standing, although that might be consistent with his medical therapy not an intrinsic autonomic issue. He clearly has significant hypertension, as well as borderline LVH and will need treatment however I would like to exclude reversible causes. I would like to get a renal ultrasound, he did have an abdominal CT but to my knowledge has not had an ultrasound. I am also going to draw a baseline reunion and an angiotensin level, I would strongly consider a 24-hour urine collection although that can be done at home unless he is going to stay here. I think it would be reasonable to repeat his sleep study to make sure he has had correction of his sleep apnea. If the studies are all negative a 24-hour ambulatory blood pressure monitor would be useful to see whether his blood pressure truly varies a lot throughout the day, we do have those available through our office. As far as treatment I would probably stay away from vasodilators with his orthostasis (even though not symptomatic) although all medications can do it, if he does have whitecoat hypertension may be more catecholamine driven and perhaps beta-blockers would be better. Currently he is on carvedilol which is probably acceptable although it is also an alpha-maricarmen. History of Present Illness Reason for Consultation: Labile hypertension Attending Physician: Geovany Escobedo History of Present Illness This is a 58-year-old male who has a long history of hypertension although he has had a great deal of weight loss and has an improvement in his blood pressure allowing him to reduce his medications. He also had sleep apnea and was treated for it, but with weight loss he no longer uses the equipment although I do not believe he has had a follow-up study. Per his history his blood pressure tends to be well controlled at home, however in the hospital or at physician's offices it tends to be elevated, sometimes markedly elevated at over 200 systolic. That is been the case this admission and also in December of this year as an outpatient. He tells me that he has been diagnosed with whitecoat hypertension, apparently his blood pressures are repeated after the high measures and they tend to be lower. From his history it does not sound as though orthostasis has been definitively evaluated, he does measure his blood pressures and right and left arms and based on his charted blood pressures right and left arms were used with no significant difference. His heart rates tend to be in a normal range, neither high nor low to correlate with the blood pressure readings. Allergies Allergy/AdvReac Type Severity Reaction Status Date / Time clindamycin Allergy Mild DIZZY Verified 02/19/19 09:26 Penicillins Allergy Unknown . Verified 02/19/19 09:26 amlodipine Allergy Verified 02/19/19 09:26 amoxicillin [From Augmentin] Allergy Verified 02/19/19 09:26 clavulanic acid Allergy Verified 02/19/19 09:26 [From Augmentin] Home Medications Home Medications Medication Instructions Recorded Confirmed Type ascorbic acid (vitamin C) 1,000 mg 1 gm PO DAILY #30 tab 12/29/18 02/20/19 Rx tablet beta carotene 15 mg tablet 15 mg PO DAILY tab 12/29/18 02/20/19 History cholecalciferol (vitamin D3) 2,000 2,000 units PO DAILY #30 cap 12/29/18 02/20/19 Rx unit capsule multivitamin tablet 1 tab PO DAILY #30 tab 12/29/18 02/20/19 Rx omega-3 fatty acids 500 mg capsule 500 mg PO DAILY #30 cap 12/29/18 02/20/19 Rx vitamin B complex tablet 1 tab PO DAILY #30 tab 12/29/18 02/20/19 Rx CLA 1,000 mg PO DAILY 02/11/19 02/20/19 History ferrous sulfate [iron] 325 mg PO DAILY 02/11/19 02/20/19 History oxycodone-acetaminophen [Percocet] 1 tab PO Q6H PRN #30 tab 02/19/19 02/20/19 Rx Bpc 157 Amino Acids 1 dose INJ UD 02/20/19 02/20/19 History Lecithin E 3 tabs PO DAILY 02/20/19 02/20/19 History ketorolac 10 mg PO Q8H PRN 02/20/19 02/20/19 History lisinopril-hydrochlorothiazide 0.5 tab PO MOWEFR 02/20/19 02/20/19 History loratadine [Claritin] 10 mg PO DAILY PRN 02/20/19 02/20/19 History turmeric 0 mg PO DAILY 02/20/19 02/20/19 History Patient History Medical History Fracture of left carpal bone Depression with anxiety (Chronic) Lower back pain (Chronic) Obstructive sleep apnea (Chronic) resolved w/ wt loss Hypertension (Chronic) Type 2 diabetes mellitus (Chronic) diet controlled (reports resolved since wt loss) Ventral hernia (Chronic) Gilbert syndrome Herniated cervical disc Surgical History History of colonoscopy w/ polypectomy History of esophagogastroduodenoscopy (EGD) Status post trigger finger release Family History Father H/O aortic valve replacement @ age 85 Hypertension Social History Preferred Language: Slovak Communication Ability: Effective Visual Impairment: No Limitations Hearing Ability: Normal Roping Tender Required: No Beliefs That Will Affect Care: None marital status: Single Current Living Situation: Parent Current Living Situation Comment: parents live with him current occupational status: employed current occupation: self-employed musician Feels Safe at Home: Yes Smoking Status: Never smoker Hx Alcohol Use: Yes Alcohol type: beer Alcohol Intake Frequency: Holidays/Special Occasions Hx Substance Use: No Dental Care, Regularly: Yes Physical Activity Frequency: 3-4 Times per Week Review of Systems Review of Systems: All systems reviewed & are unremarkable except as noted in HPI & below Physical Exam Physical Exam: Constitutional: Alert, cooperative and in no distress. HEENT: Unremarkable Neck: No jugular venous distention, carotid pulses are normal and equal bilaterally without bruits. Pulmonary: Clear to auscultation bilaterally. Cardiac: Regular rhythm with no murmur, gallop or rub. Abdomen: Soft, nontender with normal bowel sounds. Extremities: No edema. Distal pulses intact. Neurologic: No focal findings. Gait is steady. Skin: No rash, ecchymoses or petechiae. Results & Data Vital Signs (Past 12 Hours) Vital Signs Temp Pulse Pulse Resp BP BP Pulse Ox 02/25/19 08:31 65 02/25/19 07:01 37.0 C 68 17 137/89 98 02/25/19 04:34 36.7 C 76 17 153/97 H 02/25/19 00:40 65 02/24/19 23:38 36.9 C 69 16 185/103 H 96 Diagnostic Findings Telemetry: Sinus rhythm, no significant arrhythmia Electrocardiogram done February 24, 2019 shows sinus rhythm, possible left atrial enlargement, no significant abnormality although the QRS voltage appears borderline. Prior electrocardiograms have been similar. An echocardiogram done February 24, 2019 shows normal left ventricular systolic function with ejection fraction of 65 to 70%, mild concentric left ventricular hypertrophy. No significant valvular abnormalities. Orthostatic vital signs: (No significant heart rate change) Supine: 182/111 Sittin/107 Standin/102 PG Care Time/CCT Total # of Minutes Spent Total Time Spent with Patient: Total time spent is greater than 50% in coordination of care (as documented) at patient's floor/unit and/or counseling patient:
--- NOTE | 2019-02-25 14:00 | Ultrasound Report ---
DOPPLER ULTRASOUND OF THE RENAL ARTERIES CLINICAL HISTORY: Hypertension. COMPARISON STUDY: None TECHNIQUE: Doppler sonography of the renal arteries was performed to assess renal artery stenosis. Im ages are reviewed in the transverse and longitudinal planes. FINDINGS: Normal velocity characteristics bilaterally. Waveforms are unremarkable. Unremarkable resistive indices. IMPRESSION: There is no sonographic evidence of renal artery stenosis. Normal study Electronically signed by: Jimbo Cannon M.D. 02/25/2019 1:59 PM
[2019-02-25] MEDS ORDERED: FAMOTIDINE 20 MG TAB PO SCH (21:00)
== END 2019-02-25 16:45 | disposition home or self-care (01) | DRG 392 ==
LOC: ED 17:04 → 2E 21:11 → SUATTDRO 21:11 → 2E 22:03